=== PATIENT | male | born 1985 | race Caucasian/White ===

== ENCOUNTER 2017-10-03 13:59 | Emergency (ER) | payer MEDICARE, OTHER ==
[~2017-10-03] VITALS: Ht 170.2 cm; Wt 90.8 kg
[~2017-10-03 13:59] MED LIST: METH40TA9 PO; RANI150 PO
[2017-10-03 14:06] VITALS: BP 135/82; PULSE 84; RESP 16; TEMP 98.4; O2SAT 97
[2017-10-03] MEDS ORDERED: KEPP750T PO (14:24)
[2017-10-03] MEDS ORDERED: XANA1TAB2 PO (14:24)
[2017-10-03] MEDS ORDERED: CYCLOBENZAPRINE HCL 10 MG TAB PO ONE (14:45)
[2017-10-03] MEDS ORDERED: IBUPROFEN 800 MG TAB PO ONE (14:45)
--- NOTE | 2017-10-03 15:40 | PD ---
HPI Chief Complaint: Musculoskeletal Complaint Time Seen by Provider: 14:18 Travel History International Travel<30 days: No Contact w/Intl Traveler<30days: No Traveled to known affect area: No PFSH Past Medical History ADHD: No Arthritis: No Blood Disorders: No Anxiety: Yes Depression: Yes Cancer: No Cardiovascular Problems: No Chemotherapy: No Cerebrovascular Accident: No Diabetes: No Diminished Hearing: No Endocrine: No Gastrointestinal Disorders: Yes (IRRITABLE BOWEL SYNDROME) Genitourinary: No Headaches: Yes Immune Disorder: No Implanted Vascular Access Dvce: No Musculoskeletal: Yes Neurologic: Yes Psychiatric: Yes Reproductive: No Respiratory: No Migraines: No Radiation Therapy: No Seizures: Yes Thyroid Disease: No Influenza Vaccination: No Past Surgical History Abdominal Surgery: No AICD: No Arteriovenous Shunt: No Cardiac Surgery: No Ear Surgery: No Endocrine Surgery: No Eye Surgery: No Genitourinary Surgery: No Insulin Pump: No Joint Replacement: No Neurologic Surgery: No Oral Surgery: No Pacemaker: No Thoracic Surgery: No Tonsillectomy: Yes Other Surgery: Yes (bone graft from left hip) Social History Alcohol Use: No Tobacco Use: Yes (13ppd) Substance Use: Yes (DILAUDID hx) Allergies-Medications (Allergen,Severity, Reaction): Coded Allergies: etomidate (Unverified Allergy, Severe, muscle rigidity, seizures, 10/03/17) meloxicam (Unverified Allergy, Severe, HIVES, 10/03/17) *MDRO Multi-Drug Resistant Organism (Verified Allergy, Unknown, 10/03/17) MRSA Reported Meds & Prescriptions Reported Meds & Active Scripts Active Zantac 150 Mg Tab (Ranitidine HCl) 150 Mg Tab 150 Mg PO BID 28 Days Reported Xanax (Alprazolam) 1 Mg Tab 1 Mg PO Q8H PRN Keppra (Levetiracetam) 750 Mg Tab 750 Mg PO BID Methadone Hcl (Methadone HCl) 40 Mg Tab 160 Mg PO Data Data Last Documented VS Vital Signs Date Time Temp Pulse Resp B/P (MAP) Pulse Ox O2 Delivery O2 Flow Rate FiO2 10/03/17 14:06 98.4 84 16 135/82 (99) 97 Orders Orders Ibuprofen (Motrin) (10/03/17 14:45) Cyclobenzaprine (Flexeril) (10/03/17 14:45) MDM Medical Decision Making Medical Screen Exam Complete: Yes Emergency Medical Condition: Yes Differential Diagnosis Thoracic strain, thoracic muscle spasm , trapezius muscle strain/spasm, unlikely discitis, unlikely spinal epidural abscess Narrative Course 31-year-old male here with upper and mid back pain 1 week. Cannot recall specific injury. No fever or chills. No midline spine tenderness. Patient does have a remote history of IV drug abuse. He is adamant he's been clean for 6 years. My suspicion for epidural abscess is low given he has no fever and no midline spine tenderness. Normal neurologic exam. He is tender to the left thoracic musculature. He is well-appearing. He'll be treated for thoracic muscle strain. Strict return precautions were discussed if he develops fever, increasing pain, any new worsening symptoms. He verbalizes understanding and agrees to plan Diagnosis Primary Impression: Strain of muscle at thorax level Referrals: Primary Care Physician Additional Instructions: Ibuprofen and Flexeril as directed. Follow-up with her primary doctor. Return to the emergency department if he developed fever, chills, increasing pain, any new concerning symptom Scripts Cyclobenzaprine (Flexeril) 10 Mg Tab 10 MG PO TID for Muscle Spasm, #12 TAB 0 Refills Prov: Kecia Horner 10/03/17 Ibuprofen (Ibuprofen) 800 Mg Tab 800 MG PO Q6HR Y for PAIN, #40 TAB 0 Refills Prov: Kecia Horner 10/03/17 Disposition: 01 DISCHARGE HOME Condition: Stable Kecia Horner Oct 03, 2017 15:39
[2017-10-03] MEDS ORDERED: IBUP1TAB7 PO (16:20)
[2017-10-03] MEDS ORDERED: CYCL10TA PO (16:20)
== END 2017-10-03 16:35 | disposition home or self-care (01) ==
LOC: PHEFT 13:59
DX: S29.019A Strain of muscle and tendon of unspecified wall of thorax, initial encounter (principal); F41.9 Anxiety disorder, unspecified; F32.9 Major depressive disorder, single episode, unspecified; F17.210 Nicotine dependence, cigarettes, uncomplicated; Z88.8 Allergy status to other drugs, medicaments and biological substances; Z79.899 Other long term (current) drug therapy
CPT/HCPCS: 99283

== ENCOUNTER 2017-10-27 07:25 | Emergency (ER) | payer MEDICARE, OTHER ==
[~2017-10-27] VITALS: Ht 170.2 cm; Wt 94.0 kg
[2017-10-27] VITALS (8 sets, daily range): BP systolic 115–154; BP diastolic 60–86; PULSE 91–112; RESP 16–22; TEMP 99.6–101.6; O2SAT 95–97
[~2017-10-27 07:25] MED LIST changes: +CYCL10TA PO; +IBUP1TAB7 PO; +KEPP750T PO; +XANA1TAB2 PO
[2017-10-27] MEDS ORDERED: AZITHROMYCIN INJ 500 MG in SODIUM CHLOR 0.9% 250 ML INJ 250 ML IV STA (08:06)
[2017-10-27] MEDS ORDERED: SODIUM CHLOR 0.9% 1000 ML INJ 1,000 ML IV ONE ×3 (08:06)
[2017-10-27] MEDS ORDERED: cefTRIAXone INJ 2,000 MG in SODIUM CHLORIDE 0.9% INJ 100 ML IV STA (08:06)
--- NOTE | 2017-10-27 08:14 | PD ---
HPI Chief Complaint: Cold / Flu Symptoms Time Seen by Provider: 08:01 Travel History International Travel<30 days: No Contact w/Intl Traveler<30days: No Traveled to known affect area: No History of Present Illness HPI Patient is a 31-year-old male presents to emergency room with complaints of flulike symptoms. Patient reports that he has not been feeling well for the past 2 weeks, reports that he initially had more of a URI. Patient reports that for the past 2-4 days, he has been having increased fevers and chills, reports that he has been having a productive cough, reports overall decreased p.o. intake. Patient reports that he has a mild headache - "Pounding to his head", as well as body aches. Patient denies any neck pain. Patient reports that "I hurt all over." Patient reports that he did not receive the flu vaccination this year. Patient denies any sick contacts, denies any recent travels or trips. Patient is a smoker, reports that he has decreased his cigarette intake to 1 cigarette per day due to his illness. PFSH Past Medical History ADHD: No Arthritis: No Blood Disorders: No Anxiety: Yes Depression: Yes Cancer: No Cardiovascular Problems: No Chemotherapy: No Cerebrovascular Accident: No Diabetes: No Diminished Hearing: No Endocrine: No Gastrointestinal Disorders: Yes (IRRITABLE BOWEL SYNDROME) Genitourinary: No Headaches: Yes Immune Disorder: No Implanted Vascular Access Dvce: No Musculoskeletal: Yes Neurologic: Yes Psychiatric: Yes Reproductive: No Respiratory: No Migraines: No Radiation Therapy: No Seizures: Yes Thyroid Disease: No Past Surgical History Abdominal Surgery: No AICD: No Arteriovenous Shunt: No Cardiac Surgery: No Ear Surgery: No Endocrine Surgery: No Eye Surgery: No Genitourinary Surgery: No Insulin Pump: No Joint Replacement: No Neurologic Surgery: No Oral Surgery: No Pacemaker: No Thoracic Surgery: No Tonsillectomy: Yes Other Surgery: Yes (bone graft from left hip) Social History Alcohol Use: No Tobacco Use: Yes (3ppd) Substance Use: Yes (DILAUDID hx) Allergies-Medications (Allergen,Severity, Reaction): Coded Allergies: etomidate (Unverified Allergy, Severe, muscle rigidity, seizures, 10/27/17) meloxicam (Unverified Allergy, Severe, HIVES, 10/27/17) *MDRO Multi-Drug Resistant Organism (Verified Allergy, Unknown, 10/27/17) MRSA Reported Meds & Prescriptions Reported Meds & Active Scripts Active Flexeril (Cyclobenzaprine HCl) 10 Mg Tab 10 Mg PO TID Ibuprofen 800 Mg Tab 800 Mg PO Q6HR PRN Reported Keppra (Levetiracetam) 750 Mg Tab 750 Mg PO BID Xanax (Alprazolam) 2 Mg Tab 2 Mg PO BID PRN Review of Systems General / Constitutional: Positive: Fever, Chills Eyes: No: Visual changes HENT: Positive: Headaches, No: Neck Stiffness, Neck Pain Cardiovascular: No: Chest Pain or Discomfort, Palpitations, Irregular Rhythm Respiratory: Positive: Cough, No: Shortness of Breath Gastrointestinal: Positive: Nausea, Loss of Appetite, No: Vomiting, Abdominal Pain, Constipation Genitourinary: No: Dysuria Musculoskeletal: No: Pain Skin: No Rash Neurologic: Positive: Weakness, Headache, No: Dizziness Psychiatric: No: Depression Endocrine: No: Polydipsia Hematologic/Lymphatic: No: Easy Bruising Physical Exam Narrative GENERAL: Moderate distress SKIN: Focused skin assessment warm. Patient is diaphoretic HEAD: Atraumatic. Normocephalic. EYES: Pupils equal and round. No scleral icterus. No injection or drainage. ENT: No nasal bleeding or discharge. Mucous membranes pink and moist. NECK: Trachea midline. No JVD. CARDIOVASCULAR: Tachycardic. No murmur appreciated. RESPIRATORY: No accessory muscle use. Clear to auscultation. Breath sounds equal bilaterally. GASTROINTESTINAL: Abdomen soft, non-tender, nondistended. Hepatic and splenic margins not palpable. MUSCULOSKELETAL: No obvious deformities. No clubbing. No cyanosis. No edema. NEUROLOGICAL: Awake and alert. No obvious cranial nerve deficits. Motor grossly within normal limits. Normal speech. PSYCHIATRIC: Appropriate mood and affect; insight and judgment normal. Data Data Last Documented VS Vital Signs Date Time Temp Pulse Resp B/P (MAP) Pulse Ox O2 Delivery O2 Flow Rate FiO2 10/27/17 12:30 96 16 116/70 (85) 97 Room Air 10/27/17 08:30 99.6 Orders Orders Sepsis Workup Initiated (10/27/17 ) Complete Blood Count With Diff (10/27/17 08:06) Comprehensive Metabolic Panel (10/27/17 08:06) Lactic Acid Sepsis Protocol (10/27/17 08:06) Magnesium (Mg) (10/27/17 08:06) Urinalysis - C+S If Indicated (10/27/17 08:06) Influenzae A/B Antigen (10/27/17 08:06) Blood Culture (10/27/17 08:06) Ecg Monitoring (10/27/17 08:06) Iv Access Insert/Monitor (10/27/17 08:06) Oximetry (10/27/17 08:06) Ceftriaxone Inj (Rocephin Inj) (10/27/17 08:06) Azithromycin Inj (Zithromax Inj) (10/27/17 08:06) Sodium Chlor 0.9% 1000 Ml Inj (Ns 1000 M (10/27/17 08:06) Sodium Chlor 0.9% 1000 Ml Inj (Ns 1000 M (10/27/17 08:06) Sodium Chlor 0.9% 1000 Ml Inj (Ns 1000 M (10/27/17 08:06) Acetaminophen (Tylenol) (10/27/17 08:15) Chest, Pa & Lat (10/27/17 08:46) Vascular Access Team Consult/P PRN (10/27/17 10:15) Vascular Poc Ultrasound (10/27/17 ) Labs Laboratory Tests Test 10/27/17 09:05 10/27/17 09:26 10/27/17 10:55 Urine Collection Type CLEAN CATCH Urine Color YELLOW Urine Turbidity SL CLOUDY Urine pH 5.5 Urine Specific Nelson GREATER/EQUAL 1.030 Urine Protein 30 mg/dL Urine Glucose (UA) NEG mg/dL Urine Ketones 15 mg/dL Urine Occult Blood NEG Urine Nitrite NEG Urine Bilirubin NEG Urine Urobilinogen 0.2 MG/DL Urine Leukocyte Esterase NEG Urine WBC 0-2 /hpf Urine Squamous Epithelial Cells 6-8 /hpf Urine Transitional Epithelial Cells 0-5 /hpf Urine Amorphous Sediment MOD Microscopic Urinalysis Comment CULT NOT INDICATED Urine Collection Time 0905 White Blood Count 12.1 TH/MM3 Red Blood Count 5.87 MIL/MM3 Hemoglobin 17.4 GM/DL Hematocrit 52.8 % Mean Corpuscular Volume 89.9 FL Mean Corpuscular Hemoglobin 29.6 PG Mean Corpuscular Hemoglobin Concent 33.0 % Red Cell Distribution Width 14.1 % Platelet Count 301 TH/MM3 Mean Platelet Volume 8.8 FL Neutrophils (%) (Auto) 77.5 % Lymphocytes (%) (Auto) 12.1 % Monocytes (%) (Auto) 8.4 % Eosinophils (%) (Auto) 0.8 % Basophils (%) (Auto) 1.2 % Neutrophils # (Auto) 9.4 TH/MM3 Lymphocytes # (Auto) 1.5 TH/MM3 Monocytes # (Auto) 1.0 TH/MM3 Eosinophils # (Auto) 0.1 TH/MM3 Basophils # (Auto) 0.1 TH/MM3 CBC Comment DIFF FINAL Differential Comment Blood Urea Nitrogen 12 MG/DL Creatinine 0.98 MG/DL Random Glucose 99 MG/DL Total Protein 7.5 GM/DL Albumin 3.3 GM/DL Calcium Level 8.6 MG/DL Magnesium Level 1.9 MG/DL Alkaline Phosphatase 116 U/L Aspartate Amino Transf (AST/SGOT) 26 U/L Alanine Aminotransferase (ALT/SGPT) 48 U/L Total Bilirubin 0.5 MG/DL Sodium Level 139 MEQ/L Potassium Level 3.7 MEQ/L Chloride Level 109 MEQ/L Carbon Dioxide Level 22.2 MEQ/L Anion Gap 8 MEQ/L Estimat Glomerular Filtration Rate 89 ML/MIN Lactic Acid Level 0.9 mmol/L MDM Medical Decision Making Medical Screen Exam Complete: Yes Emergency Medical Condition: Yes Medical Record Reviewed: Yes Interpretation(s) Vital Signs Date Time Temp Pulse Resp B/P (MAP) Pulse Ox O2 Delivery O2 Flow Rate FiO2 10/27/17 07:29 101.6 112 20 154/78 (103) 95 Differential Diagnosis Sepsis, pneumonia, influenza, electrolyte abnormality, meningitis though unlikely Narrative Course 31-year-old male presents to emergency room with complaints of 2 weeks of URI with worsening symptoms for the past 3-4 days. Patient presents the emergency room tachycardic, febrile, with symptoms of fevers and chills, diaphoresis with productive cough which has worsened over the past 3-4 days. He did not receive the influenza vaccine this year. He did take a dose of Motrin prior to coming to the emergency room with no relief of his fever. Discussed with patient need for sepsis workup given his vital signs as well as his HPI. During the course of the patients emergency department visit, the patients history, examination, and differential diagnosis were reviewed with the patient. The patient was placed on a bus driver/monitor with oximetry and frequent blood pressure monitoring. The patient had an IV access obtained and blood work sent for analysis. The patient was initially provided 30 cc/kg IV fluid bolus, IV Rocephin as well as IV azithromycin for treatment of possible pneumonia with sepsis. The patients laboratory studies were reviewed and remarkable for: CBC & BMP Diagram 10/27/17 09:26 10/27/17 10:55 Total Protein 7.5, Albumin 3.3 L, Calcium Level 8.6, Magnesium Level 1.9, Alkaline Phosphatase 116, Aspartate Amino Transf (AST/SGOT) 26, Alanine Aminotransferase (ALT/SGPT) 48, Total Bilirubin 0.5 Lactate 0.9 Vital Signs Date Time Temp Pulse Resp B/P (MAP) Pulse Ox O2 Delivery O2 Flow Rate FiO2 10/27/17 11:30 95 16 123/68 (86) 97 Room Air 10/27/17 10:31 91 18 137/71 (93) 96 Room Air 10/27/17 10:04 97 18 95 Room Air 10/27/17 09:30 92 18 130/74 (92) 96 Room Air 10/27/17 08:30 110 18 95 Room Air 10/27/17 08:30 99.6 99 18 115/78 (90) 95 Room Air 10/27/17 08:30 18 95 Room Air 10/27/17 07:29 101.6 112 20 154/78 (103) 95 Radiology studies were reviewed and remarkable for: Last Impressions Chest X-Ray 10/27/17 0846 Signed Impressions: Service Date/Time: Friday, October 27, 2017 08:49 - CONCLUSION: No acute disease. There is no evidence of pneumonia. Benny Ngo MD After IV fluids, patient reports that he is feeling much better. Patient is afebrile, no longer tachycardic. Patient does meet SIRS criteria, see description was likely from influenza and dehydration. patient reports that he is hungry and thirsty, patient was ordered a meal tray was able to tolerate this. All labs and all studies were reviewed, lactic acid was 0.9, patient was positive for influenza B. I did offer patient admission to the hospital for observation as the patient reports that he is feeling much better at this time and would like to be discharged home. Discussed with him that Tamiflu would not be offered this time as he is 4 days into his symptoms. I encouraged patient to drink plenty of fluids. Patient will follow up with his primary care doctor. Signs and symptoms of when to return to the emergency room as needed patient in detail. Patient is appreciative of care Please note that patient had a prolonged ER visit as patient has history of IV drug abuse. Multiple RNs as well as myself could not establish an IV access. IV access was established by picc team. Sepsis Criteria SIRS Criteria (2 or more): Temp > 100.9 or < 96.8, Heart rate over 90, WBC > 65325, < 4000 or > 10% bands Criteria Outcome: Meets SIRS criteria Diagnosis Primary Impression: Influenza B Patient Instructions: General Instructions Additional Instructions: Please provide patient with a copy of their lab work and studies at discharge* * Please follow up with your primary care doctor in 2-3 days Return to the ER if symptoms worsen or progress Return to the ER as needed Please follow-up with all cultures from today Please drink plenty of fluids, take Tylenol or Advil for fever Disposition: 01 DISCHARGE HOME Condition: Stable Pati Hanna DO Oct 27, 2017 08:14
[2017-10-27] MEDS ORDERED: ACETAMINOPHEN 325 MG TAB PO ONE (08:15)
[2017-10-27] MEDS ORDERED: KEPP750T PO (08:50)
[2017-10-27] MEDS ORDERED: XANA2TAB2 PO (08:50)
--- NOTE | 2017-10-27 09:08 | RADRPT ---
EXAM DATE/TIME: 10/27/2017 08:49 [facility] COMPARISON: No previous studies available for comparison. INDICATIONS : Dry cough and anterior chest pain radiating to back when coughing. MEDICAL HISTORY : Seizure. SURGICAL HISTORY : Bilateral shoulder surgery. ENCOUNTER: Initial ACUITY: 2 weeks PAIN SCORE: 6/10 LOCATION: Bilateral chest FINDINGS: PA and lateral views of the chest demonstrate the lungs to be symmetrically aerated without evidence of mass, infiltrate or effusion. The cardiomediastinal contours are unremarkable. Osseous structure s are intact. Postoperative changes are noted in both shoulders. CONCLUSION: No acute disease. There is no evidence of pneumonia. Benny Ngo MD on October 27, 2017 at 9:05 Board Certified Radiologist. This report was verified electronically.
[2017-10-27 09:29] LABS: AUTOMATED NEUTROPHIL # 9.4 TH/MM3 (1.8-7.7); BASOPHIL # 0.1 TH/MM3 (0-0.2); BASOPHIL % 1.2 % (0.0-2.0); EOSINOPHIL # 0.1 TH/MM3 (0-0.4); EOSINOPHIL % 0.8 % (0.0-4.0); HEMATOCRIT 52.8 % (39.0-51.0); HEMOGLOBIN 17.4 GM/DL (13.0-17.0); LYMPH % 12.1 % (9.0-44.0); LYMPHOCYTE # 1.5 TH/MM3 (1.0-4.8); MEAN CELL VOLUME 89.9 FL (80.0-100.0); MEAN CORPUSCULAR HEMOGLOBIN 29.6 PG (27.0-34.0); MEAN PLATELET VOLUME 8.8 FL (7.0-11.0); MONO % 8.4 % (0.0-8.0); NEUT % 77.5 % (16.0-70.0); PLATELET COUNT 301 TH/MM3 (150-450); RED BLOOD COUNT 5.87 MIL/MM3 (4.50-5.90); RED CELL DISTRIBUTION WIDTH 14.1 % (11.6-17.2); WHITE BLOOD COUNT 12.1 TH/MM3 (4.0-11.0)
[2017-10-27 09:57] LABS: BILIRUBIN, URINE NEG (NEG); BLOOD, URINE NEG (NEG); GLUCOSE,URINE NEG (NEG); KETONE, URINE 15 mg/dL (NEG); NITRITE,URINE NEG (NEG); PH, URINE 5.5 (5.0-8.5); URINE COLOR YELLOW (YELLW/STRAW); URINE LEUKOCYTE ESTERASE NEG (NEG)
[2017-10-27 10:05] LABS: AMORPHOUS SEDIMENT, URINE MOD; TRANSITIONAL EPI CELLS, URINE 0-5 /hpf; WBC, URINE 0-2 /hpf (0-5)
[2017-10-27 11:14] LABS: CHLORIDE 109 MEQ/L (98-107); SODIUM (NA) 139 MEQ/L (136-145)
[2017-10-27 11:17] LABS: CALCIUM 8.6 MG/DL (8.5-10.1)
[2017-10-27 11:18] LABS: ALBUMIN 3.3 GM/DL (3.4-5.0); BICARBONATE 22.2 MEQ/L (21.0-32.0); BLOOD UREA NITROGEN 12 MG/DL (7-18); GLUCOSE,RANDOM 99 MG/DL (74-106); MAGNESIUM 1.9 MG/DL (1.5-2.5)
[2017-10-27 11:21] LABS: ALT (GPT) 48 U/L (12-78); AST (GOT) 26 U/L (15-37); CREATININE 0.98 MG/DL (0.60-1.30); GLOMERULAR FILTRATION RATE 89 ML/MIN (>89)
[2017-10-27 11:22] LABS: TOTAL BILIRUBIN ADULT 0.5 MG/DL (0.2-1.0); TOTAL PROTEIN 7.5 GM/DL (6.4-8.2)
[2017-10-27 11:24] LABS: ALKALINE PHOSPHATASE 116 U/L (45-117)
== END 2017-10-27 15:54 | disposition home or self-care (01) ==
LOC: PHED 07:25
DX: J10.1 Influenza due to other identified influenza virus with other respiratory manifestations (principal); R00.0 Tachycardia, unspecified; R11.0 Nausea; R53.1 Weakness; F41.9 Anxiety disorder, unspecified; R56.9 Unspecified convulsions; F17.210 Nicotine dependence, cigarettes, uncomplicated; Z79.899 Other long term (current) drug therapy; Z87.19 Personal history of other diseases of the digestive system
CPT/HCPCS: 71046; 80053; 81001; 83605; 83735; 85025; 87040; 87804; 96361; 96365; 96366; 96367; 99284; J0456; J0696; J7030; J7050

== ENCOUNTER 2018-06-12 17:08 | Observation (INO) ==
[2018-06-12] MEDS ORDERED: Sod Chloride 0.9% Inj 1,000 ML IV.CONT SCH (17:30)
[2018-06-12] MEDS ORDERED: Diatrizoate Meglum/Diatrizoate Sod Liq 9 ML UDC PO ONE (17:30)
--- NOTE | 2018-06-12 17:40 | ED ---
HPI General Chief Complaint: Abdominal Pain Stated Complaint: vomiting/abd pian X1week Time Seen by Provider: 06/12/18 17:29 History of Present Illness HPI narrative: This is a 32-year-old male with a history of irritable bowel syndrome, seizure disorder, polysubstance abuse, who presents today with 2-day history of nausea vomiting and blood in his stool. Patient states he started expressing nausea vomiting 2 days ago. He states that also he noted bright red blood in his stool with large clots. He reports pain in his right middle abdominal area. He states he was seen here couple weeks ago for abdominal pain was told he had gall bladder disease. He does give history that he has been drinking a lot of alcohol over the last several weeks. He also reports using cocaine for last couple weeks. He denies any IV drug use now. He states he did use IV drugs however quit 5 years ago. He denies any history of peptic ulcer disease. He does report occasional pain in his epigastric area. Related Data Home Medications Medication Instructions Recorded Confirmed gabapentin 300 mg PO DAILY 05/22/18 05/22/18 levetiracetam [Keppra] 500 mg PO BID 05/22/18 06/12/18 Allergies Allergy/AdvReac Type Severity Reaction Status Date / Time etomidate Allergy Severe muscle Verified 06/12/18 17:16 rigidity, seizures meloxicam Allergy Severe HIVES Verified 06/12/18 17:16 *MDRO Multi-Drug Resistant Allergy Unknown mrsa Uncoded 06/12/18 17:16 Organism Review of Systems ROS: all other systems reviewed are negative Constitutional Denies system reviewed and no additional complaints, except as docu and Denies fever(s) Eyes Reports system reviewed and no additional complaints, except as docu ENT Reports system reviewed and no additional complaints, except as docu Cardiovascular Denies chest pain, Denies diaphoresis, Reports lightheadedness and Denies dyspnea Respiratory Reports cough (Occasional nonproductive), Denies dyspnea and Denies dyspnea on exertion Gastrointestinal Reports abdominal pain, Denies melena, Reports hematochezia, Denies coffee ground emesis, Denies diarrhea, Reports nausea and Reports vomiting Genitourinary Reports system reviewed and no additional complaints, except as docu Musculoskeletal Reports system reviewed and no additional complaints, except as docu Neurologic Reports dizziness, Denies headache(s), Denies focal weakness and Denies numbness [facility] Medical History Medical History Hx of seizure disorder (Acute) Gallstones (Acute) IBS (irritable bowel syndrome) (Acute) Restless leg syndrome (Acute) Shingles (Acute) Surgical History Surgical History Hx of shoulder surgery (Acute) Hx of tonsillectomy (Acute) Social History Social History Substance History: Active Abuse Second Hand Smoke Exposure: No Smoking Status: Current every day smoker Tobacco Type: Cigarettes How Often Do You Have a Drink Containing Alcohol: 2 to 3 times a week Recent Travel in [facility] within the Last 8 Weeks: No Recent Out of Country Travel within the Last 8 Weeks: No Exam Narrative Exam Narrative: GENERAL: Well-developed well-nourished male in no acute respiratory distress. SKIN: Focused skin assessment warm/dry. HEAD: Atraumatic. Normocephalic. EYES: No scleral icterus. No injection or drainage. No pale conjunctiva. ENT: No nasal bleeding or discharge. Mucous membranes pink and moist. NECK: Trachea midline. Supple. CARDIOVASCULAR: Regular rate and rhythm. No murmur appreciated. RESPIRATORY: No accessory muscle use. Clear to auscultation. Breath sounds equal bilaterally. GASTROINTESTINAL: Abdomen soft, nondistended. Patient has tenderness to palpation in his right periumbilical area. No rebound, mild guarding. There is also minimal tenderness in his epigastrium. No left lower quadrant tenderness or rebound. RECTAL EXAM: Patient refused rectal exam. MUSCULOSKELETAL: No obvious deformities. No clubbing. No cyanosis. No edema. NEUROLOGICAL: Awake and alert. No obvious cranial nerve deficits. Motor grossly within normal limits. Normal speech. Course Initial Documented Vital Signs Temperature 98.9 F 06/12/18 17:16 Pulse Rate 81 06/12/18 17:16 Respiratory Rate 18 06/12/18 17:16 Blood Pressure 160/99 H 06/12/18 17:16 Pulse Oximetry 96 06/12/18 17:16 Last Documented Vital Signs Temperature 98.9 F 06/12/18 17:16 Pulse Rate 81 06/12/18 17:16 Respiratory Rate 18 06/12/18 17:16 Blood Pressure 160/99 H 06/12/18 17:16 Pulse Oximetry 96 06/12/18 17:16 Medical Decision Making MDM Narrative Medical decision making narrative: 32-year-old male with history of IV drug use 5 years ago, seizure disorder, chronic alcohol abuse, polysubstance abuse, who presents today with complaints of 2-day history of nausea vomiting and bloody stool. Patient initially stated he did not have diarrhea however now he reports that he has had 2-week history of loose stools. The patient has crampy abdominal pain. He has more pain in his right periumbilical area. There is no rebound. He denies any fevers, chills. Patient was recently admitted to the hospital for gallbladder disease. The patient's blood count shows hemoconcentration of his hemoglobin and hematocrit. He is white blood cell count is normal. Patient's bilirubin and liver function tests are elevated. CAT scan is pending at this time however he does not have a surgical belly at this time. We will admit him to the hospital for IV fluids. He will be made n.p.o. He will need a GI consult. I will asked the physician replaced me at change of shift to check on the CT scan to ensure that there is not acute surgical problem at this time. The patient was able to have his father bring in his under shorts that were stained with bright red blood. He did test positive with the Hemoccult danii. Again he had refused rectal examination. Medical Screen Exam Complete: Yes Emergency Medical Condition: Yes Differential Diagnosis Differential Diagnosis: Diverticular bleed versus inflammatory bowel disease versus brisk upper GI bleed Lab Data Result diagrams: 06/12/18 18:00 06/12/18 18:00 Lab Results 06/12/18 06/12/18 06/12/18 Range/Units 18:00 18:00 18:00 CBC w Diff Auto diff final WBC 6.0 (4.0-11.0) th/mm3 RBC 6.01 H (4.50-5.90) mil/mm3 Hgb 20.0 H (13.0-17.0) gm/dL Hct 57.0 H (39.0-51.0) % MCV 94.7 (80.0-100.0) fL MCH 33.3 (27.0-34.0) pg MCHC 35.1 (32.0-36.0) % RDW 13.8 (11.6-17.2) % Plt Count 210 (150-450) th/mm3 MPV 8.6 (7.0-11.0) fL Neut % (Auto) 66.1 (16.0-70.0) % Lymph % (Auto) 22.1 (9.0-44.0) % King % (Auto) 8.2 H (0.0-8.0) % Eos % (Auto) 2.2 (0.0-4.0) % Baso % (Auto) 1.4 (0.0-2.0) % Neut # (Auto) 4.0 (1.8-7.7) th/mm3 Lymph # (Auto) 1.3 (1.0-4.8) th/mm3 King # (Auto) 0.5 (0.0-0.9) th/mm3 Eos # (Auto) 0.1 (0.0-0.4) th/mm3 Baso # (Auto) 0.1 (0.0-0.2) th/mm3 WBC Differential . Differential Comment . PT 11.3 (9.8-11.6) sec INR 1.1 Ratio APTT 30.3 (23.4-31.7) sec Sodium 141 (136-145) meq/L Potassium 3.5 (3.5-5.1) meq/L Chloride 107 (98-107) meq/L Carbon Dioxide 27.3 (21.0-32.0) meq/L Anion Gap 7 (5-15) meq/L BUN 10 (7-18) mg/dL Creatinine 1.10 (0.60-1.30) mg/dL Estimated GFR 78 L (>89) mL/min Random Glucose 122 H (74-106) mg/dL Calcium 8.5 (8.5-10.1) mg/dL Magnesium 2.1 (1.5-2.5) mg/dL Total Bilirubin 1.2 H (0.2-1.0) mg/dL AST 55 H (15-37) U/L ALT 90 H (12-78) U/L Alkaline Phosphatase 120 H (45-117) U/L Total Protein 7.7 (6.4-8.2) g/dL Albumin 3.7 (3.4-5.0) g/dL Lipase 129 (73-393) U/L Imaging Data Radiologist's impression: Abdomen X-Ray 06/12/18 17:30 CONCLUSION: No evidence of free air. Discharge Plan Physicians Team ED Provider: Jesus Alberto Arechiga Primary Care Provider: Citlali Corral Rxs /Orders / Referrals /Forms Prescriptions: No Action levetiracetam [Keppra] 500 mg Tablet 500 mg PO BID RF: 0 gabapentin 300 mg Capsule 300 mg PO DAILY RF: 0 Status ED Status: With Doctor
[2018-06-12 18:08] LABS: Baso # (Auto) 0.1 th/mm3 (0.0-0.2); Baso % (Auto) 1.4 % (0.0-2.0); Eos # (Auto) 0.1 th/mm3 (0.0-0.4); Eos % (Auto) 2.2 % (0.0-4.0); Lymph # (Auto) 1.3 th/mm3 (1.0-4.8); Lymph % (Auto) 22.1 % (9.0-44.0); Mean Corpuscular HGB Conc 35.1 % (32.0-36.0); Mean Corpuscular Hemoglobin 33.3 pg (27.0-34.0); Mean Corpuscular Volume 94.7 fL (80.0-100.0); Mean Platelet Volume 8.6 fL (7.0-11.0); Mono # (Auto) 0.5 th/mm3 (0.0-0.9); Mono % (Auto) 8.2 % (0.0-8.0); Neut % (Auto) 66.1 % (16.0-70.0); Platelet Count 210 th/mm3 (150-450); Red Blood Count 6.01 mil/mm3 (4.50-5.90); Red Cell Distribution Width 13.8 % (11.6-17.2)
[2018-06-12 18:17] LABS: Chloride 107 meq/L (98-107); Potassium 3.5 meq/L (3.5-5.1); Sodium 141 meq/L (136-145)
[2018-06-12 18:20] LABS: Calcium 8.5 mg/dL (8.5-10.1)
[2018-06-12 18:20] LABS: Bilirubin,Urine Negative (Negative); Clarity,Urine Clear (Clear); Color,Urine Yellow (Yellw/Straw); Glucose,Urine (UA) Negative (Negative); Leukocyte Esterase,Urine Negative (Negative); Nitrite,Urine Negative (Negative); PH,Urine 6.5 (5.0-8.5); Specific Gravity,Urine 1.015 (1.002-1.035)
[2018-06-12 18:21] LABS: Albumin 3.7 g/dL (3.4-5.0); Anion Gap 7 meq/L (5-15); Blood Urea Nitrogen 10 mg/dL (7-18); Carbon Dioxide 27.3 meq/L (21.0-32.0); Glucose,Random 122 mg/dL (74-106); Lipase 129 U/L (73-393); Magnesium 2.1 mg/dL (1.5-2.5)
[2018-06-12 18:22] LABS: Activated Partial Thrombo Time 30.3 sec (23.4-31.7); INR 1.1 Ratio; Prothrombin Time 11.3 sec (9.8-11.6)
[2018-06-12 18:23] LABS: Alanine Aminotransferase 90 U/L (12-78); Aspartate Aminotransferase 55 U/L (15-37)
--- NOTE | 2018-06-12 18:23 | XR ---
EXAM DATE: 06/12/2018 6:08 PM EST AGE/SEX: 32 years / Male INDICATIONS: Vomiting and blood in stool. CLINICAL DATA: This is the patient's initial encounter. Patient reports that signs and symptoms have been present for 1 week and indicates a pain score of 7/10. MEDICAL/SURGICAL HISTORY: None. None. COMPARISON: No prior exams available for comparison. FINDINGS: A single erect view of the abdomen demonstrates the lower lungs to be clear. No evidence of free intr aperitoneal gas. The visualized bowel loops are unremarkable. CONCLUSION: No evidence of free air. Electronically signed by: Yoseph Kirkland MD 06/12/2018 6:22 PM EST
[2018-06-12 18:24] LABS: Glomerular Filtration Rate 78 mL/min (>89)
[2018-06-12 18:25] LABS: Total Protein 7.7 g/dL (6.4-8.2)
[2018-06-12 18:26] LABS: Alkaline Phosphatase 120 U/L (45-117)
[2018-06-12] MEDS ORDERED: Pantoprazole Inj 40 MG Vial IV.PUSH ONE (18:47)
[2018-06-12 18:55] LABS: RBC,Urine 0-3 /hpf (0-3); Squamous Epithelial Cell,Urine 0-5 /hpf (0-5)
--- NOTE | 2018-06-12 20:03 | CT ---
EXAM DATE: 06/12/2018 7:55 PM EST AGE/SEX: 32 years / Male INDICATIONS: Nausea, vomiting and blood in stool x 2 days. Right middle abdominal pain. CLINICAL DATA: This is the patient's initial encounter. Patient reports that signs and symptoms have been present for 2 days and indicates a pain score of 5/10. MEDICAL/SURGICAL HISTORY: Seizures. Shingles. Irritable bowel syndrome. Substance abuse. No ne. ORAL CONTRAST: Prescribed oral contrast ingested. RADIATION DOSE: 17.76 CTDI (mGy) COMPARISON: [facility], CT ABDOMEN AND PELVIS W/ CONTRAST, 03/20/2018. . TECHNIQUE: Multiple contiguous axial images were obtained through the abdomen and pelvis following b olus infusion of 85 ml Omnipaque 350 (iohexol) nonionic water-soluble contrast as a single exam dos e. Prescribed oral contrast ingested. Using automated exposure control and adjustment of the mA and/ or kV according to patient size, radiation dose was kept as low as reasonably achievable to obtain op timal diagnostic quality images. DICOM format image data is available electronically for review and comparison. FINDINGS: Lower Lungs: The visualized lower lungs are clear. Liver: The liver has a homogeneous density without space-occupying lesion. There is no dilation of th e biliary tree. No calcified gallstones. Spleen: Homogeneous density. Moderate enlargement with craniocaudal dimension 15.2 cm.. Pancreas: Unremarkable without mass or calcification. Kidneys: Normal in size and shape. No evidence of mass or hydronephrosis. Adrenal Glands: Unremarkable. Aorta: The aorta and proximal iliac vessels are grossly unremarkable without aneurysmal dilation. Bowel/Mesentery: No dilated loops of small or large bowel. The appendix is identified and has a norm al appearance. Abdominal Wall: Intact. Retroperitoneum: No evidence of adenopathy in the retrocrural, para-aortic, or deep pelvic regions. Bladder: Contours are smooth. Reproductive Organs: No abnormal masses or calcifications seen. Inguinal: The inguinal region is unremarkable without evidence of adenopathy. Bony Structures: Unremarkable. CONCLUSION: 1. Splenomegaly. 2. Otherwise negative CT abdomen/pelvis Electronically signed by: Yoseph Kirkland MD 06/12/2018 8:02 PM EST
[2018-06-12] MEDS ORDERED: Bisacodyl 10 MG Supp RECTAL PRN (20:49)
[2018-06-12 23:07] LABS: Amphetamine Screen,Urine Neg (Neg); Barbiturate Screen,Urine Neg (Neg); Cannabinoid Screen,Urine Neg (Neg); Cocaine Screen,Urine Pos (Neg)
[2018-06-12 23:12] LABS: Opiate Screen,Urine Neg (Neg)
[2018-06-13] MEDS: Sod Chloride 0.9% Inj 1,000 ML IV.CONT SCH ×3 (03:23→15:19)
[2018-06-13 08:36] VITALS: RESP 18
[2018-06-13 10:05] LABS: Baso # (Auto) 0.1 th/mm3 (0.0-0.2); Eos # (Auto) 0.1 th/mm3 (0.0-0.4); Hematocrit 53.5 % (39.0-51.0); Lymph # (Auto) 1.7 th/mm3 (1.0-4.8); Lymph % (Auto) 25.2 % (9.0-44.0); Mean Corpuscular HGB Conc 35.5 % (32.0-36.0); Mean Corpuscular Hemoglobin 33.7 pg (27.0-34.0); Mean Corpuscular Volume 94.9 fL (80.0-100.0); Mean Platelet Volume 8.5 fL (7.0-11.0); Mono # (Auto) 0.5 th/mm3 (0.0-0.9); Mono % (Auto) 7.5 % (0.0-8.0); Neut # (Auto) 4.4 th/mm3 (1.8-7.7); Neut % (Auto) 64.3 % (16.0-70.0); Platelet Count 155 th/mm3 (150-450); Red Blood Count 5.64 mil/mm3 (4.50-5.90); White Blood Count 6.8 th/mm3 (4.0-11.0)
[2018-06-13 10:13] LABS: Calcium 7.8 mg/dL (8.5-10.1); Chloride 107 meq/L (98-107); Potassium 3.4 meq/L (3.5-5.1); Sodium 143 meq/L (136-145)
[2018-06-13 10:14] LABS: Anion Gap 9 meq/L (5-15); Blood Urea Nitrogen 7 mg/dL (7-18); Carbon Dioxide 27.2 meq/L (21.0-32.0); Glucose,Random 84 mg/dL (74-106); Magnesium 2.1 mg/dL (1.5-2.5)
[2018-06-13 10:17] LABS: Glomerular Filtration Rate Greater Than 89 mL/min (>89)
--- NOTE | 2018-06-13 10:40 | P.HPIM ---
History of Present Illness Primary Care Physician: Citlali Corral MD History of Present Illness: This patient is a 32-year-old male with a diagnosis of irritable syndrome, seizure disorder currently on Keppra, and polysubstance abuse. Patient was recently seen in our emergency room with complaints of abdominal pain and was found to have gallstones. His symptoms resolved and he was then discharged. He says he has been drinking alcohol lately after meeting a new girlfriend. He also admits to snorting cocaine over the past few months. He comes into the emergency department last night with complaints of abdominal pain as well as bloody stools that have been ongoing for the past few weeks. He says when he was in his teens he had a colonoscopy and endoscopy because of complaints of on and off abdominal pain however no significant findings were found. He denies any fevers or chills, no nausea or vomiting. No chest pain no shortness of breath. Past medical history irritable bowel syndrome, seizure disorder. Patient states he rarely takes his Keppra occasionally once a day. Past surgical history the patient has had multiple surgeries on both of his shoulders from trauma after having seizures. Family history patient was adopted, he does not know of any significant family medical problems. Social history patient has been smoking tobacco half pack per day for approximately 12 years, he drinks alcohol socially, recently has increased his alcohol intake to a few drinks per day. This is been ongoing for about a year. He also admits to snorting cocaine, as per the patient he has snorted cocaine approximately 10 times in his life. Review of Systems All other systems reviewed negative except as stated in HPI [facility] - History History Provided By: Patient - Medical History Medical History: Medical History (Last Updated 06/12/18 @ 17:58 by Sergio Kaur RN) Hx of seizure disorder (Acute) Gallstones IBS (irritable bowel syndrome) Restless leg syndrome Shingles - Surgical History Surgical History: Surgical History (Last Updated 06/12/18 @ 17:58 by Sergio Kaur RN) Hx of shoulder surgery (Acute) Hx of tonsillectomy - Tobacco History Second Hand Smoke Exposure: Yes Tobacco Use In Past 30 Days: Yes Smoking Status: Current every day smoker Tobacco Type: Cigarettes - Alcohol History How Often Do You Have a Drink Containing Alcohol: 2 to 3 times a week - Substance Use History Substance History: Past History - Substance Use Type Crack/Cocaine Type: Dilaudid pills Status: Sustained Remission Route Used: Inhalation Last Used: 2012 Reason for Use: Get High - Travel History Recent Travel in the [place] Within the Last 8 Weeks: No Recent Travel Out of the Country Within the Last 8 Weeks: No - Immunization History Tetanus Immunization: <5 Years Medications and Allergies Active Medications: Active Medications Al Hydroxide/Mg Hydroxide (Milk Of Magnesia Liq) 30 ml PO Q12H PRN PRN Reason: Mild Constipation Bisacodyl (Dulcolax Supp) 10 mg RECTAL DAILY PRN PRN Reason: SEVERE CONSITIPATION Gabapentin (Neurontin) 300 mg PO DAILY [facility] Sodium Chloride (Ns Inj) 1,000 mls @ 125 mls/hr IV.CONT .Q8H KALA Last Admin: 06/13/18 03:23 Dose: 125 mls/hr Lactulose (Lactulose Liq) 30 ml PO DAILY PRN PRN Reason: SEVERE CONSITIPATION Levetiracetam (Keppra) 500 mg PO BID [facility] Ondansetron HCl (Zofran Inj) 4 mg IV.PUSH Q6H PRN PRN Reason: NAUSEA OR VOMITING Sennosides (Senokot) 17.2 mg PO Q12H PRN PRN Reason: Moderate Constipation Sodium Chloride (Ns Flush) 2 ml IV.FLUSH PRN PRN PRN Reason: FLUSH AFTER USING IV ACCESS Last Admin: 06/12/18 18:59 Dose: 2 ml Allergies Allergy/AdvReac Type Severity Reaction Status Date / Time etomidate Allergy Severe muscle Verified 06/12/18 17:16 rigidity, seizures meloxicam Allergy Severe HIVES Verified 06/12/18 17:16 *MDRO Multi-Drug Resistant Allergy Unknown mrsa Uncoded 06/12/18 17:16 Organism Home Medications Medication Instructions Recorded Confirmed Type levetiracetam [Keppra] 500 mg PO BID 05/22/18 06/12/18 History Exam Vital signs: Vital Signs 06/12/18 17:16 06/12/18 18:30 06/12/18 19:24 Temperature 98.9 F Pulse Rate 81 73 69 Respiratory Rate 18 16 16 Blood Pressure 160/99 H 159/100 H 149/98 H Pulse Oximetry 96 98 97 06/12/18 21:15 06/13/18 00:00 06/13/18 08:00 Temperature 97.5 F L 97.6 F 96.1 F L Pulse Rate 68 66 78 Respiratory Rate 20 20 18 Blood Pressure 134/90 128/76 134/98 H Pulse Oximetry 97 92 L 99 Intake & Output 06/12/18 06/13/18 06/13/18 18:59 06:59 18:59 Intake Total 1000 / 1000 Balance 1000 / 1000 Weight 90.9 kg 90.4 kg Intake: IV 1000 / 1000 NS Inj 1,000 ML @ 125 mls/hr IV 1000 / 1000 .CONT .Q8H KALA Rx#:[id number] Oral 0 / 0 Other: # Voids 6 Date of Last Bowel Movement 06/12/18 # Bowel Movements 0 Weight On Admission 90.9 kg Narrative: General patient complains of on and off abdominal pain. HEENT extraocular movements are intact, clear oropharyngeal mucosa, no JVD Cardiovascular S1-S2 audible, RRR, no murmurs rubs or gallops Respiratory clear to auscultation bilaterally Abdomen soft, nontender, nondistended, normal bowel sounds, no significant abdominal pain on palpation. Extremities no edema 2+ distal pulses in bilateral upper and lower extremities Neuro cranial nerves II through XII intact Results - Labs CBC & Chem 7: 06/13/18 09:00 06/13/18 09:00 Labs: Short CBC 06/12/18 06/13/18 Range/Units 18:00 09:00 WBC 6.0 6.8 (4.0-11.0) th/mm3 Hgb 20.0 H 19.0 H (13.0-17.0) gm/dL Hct 57.0 H 53.5 H (39.0-51.0) % Plt Count 210 155 (150-450) th/mm3 BMP 06/12/18 06/13/18 18:00 09:00 Sodium 141 143 Potassium 3.5 3.4 L Chloride 107 107 Carbon Dioxide 27.3 27.2 BUN 10 7 Creatinine 1.10 Calcium 8.5 7.8 L Liver Function 06/12/18 Range/Units 18:00 Total Bilirubin 1.2 H (0.2-1.0) mg/dL AST 55 H (15-37) U/L ALT 90 H (12-78) U/L Alkaline Phosphatase 120 H (45-117) U/L Albumin 3.7 (3.4-5.0) g/dL Urine 06/12/18 Range/Units 18:15 Urine Color Yellow (Yellw/Straw) Urine Clarity Clear (Clear) Urine pH 6.5 (5.0-8.5) Ur Specific Buckner 1.015 (1.002-1.035) Urine Protein Negative (Neg-Trace) mg/dL Urine Glucose (UA) Negative (Negative) mg/dL - Imaging Impressions Abdomen X-Ray 06/12/18 17:30 CONCLUSION: No evidence of free air. Abdomen/Pelvis CT 06/12/18 17:30 CONCLUSION: 1. Splenomegaly. 2. Otherwise negative CT abdomen/pelvis Caprini VTE Risk Assessment Caprini VTE Risk Assessment: No/Low Risk (score <= 1) Caprini Risk Assessment Model: Point Value = 1 Point Value = 2 Point Value = 3 Point Value = 5 Age 41-60 Minor surgery BMI > 25 kg/m2 Swollen legs Varicose veins or History of unexplained or recurrent spontaneous Oral contraceptives or hormone replacement Sepsis (< 1 month) Serious lung disease, including pneumonia (< 1 month) Abnormal pulmonary function Acute myocardial infarction Congestive heart failure (< 1 month) History of inflammatory bowel disease Medical patient at bed rest Age 61-74 Arthroscopic surgery Major open surgery (> 45 min) Laparoscopic surgery (> 45 min) Malignancy Confined to bed (> 72 hours) Immobilizing plaster cast Central venous access Age >= 75 History of VTE Family history of VTE Factor V Leiden Prothrombin [id number] Lupus anticoagulant Anticardiolipin antibodies Elevated serum homocysteine Heparin-induced thrombocytopenia Other congenital or acquired thrombophilia Stroke (< 1 month) Elective arthroplasty Hip, pelvis, or leg fracture Acute spinal cord injury (< 1 month) Prophylaxis Regimen: Total Risk Factor Score Risk Level Prophylaxis Regimen 0-1 Low Early ambulation 2 Moderate Order ONE of the following: *Sequential Compression Device (SCD) *Heparin 5000 units SQ BID 3-4 Higher Order ONE of the following medications: *Heparin 5000 units SQ TID *Enoxaparin/Lovenox 40 mg SQ daily (WT < 150 kg, CrCl > 30 mL/min) *Enoxaparin/Lovenox 30 mg SQ daily (WT < 150 kg, CrCl > 10-29 mL/min) *Enoxaparin/Lovenox 30 mg SQ BID (WT < 150 kg, CrCl > 30 mL/min) AND/OR *Sequential Compression Device (SCD) 5 or more Highest Order ONE of the following medications: *Heparin 5000 units SQ TID (Preferred with Epidurals) *Enoxaparin/Lovenox 40 mg SQ daily (WT < 150 kg, CrCl > 30 mL/min) *Enoxaparin/Lovenox 30 mg SQ daily (WT < 150 kg, CrCl > 10-29 mL/min) *Enoxaparin/Lovenox 30 mg SQ BID (WT < 150 kg, CrCl > 30 mL/min) AND *Sequential Compression Device (SCD) Assessment and Plan - Plan This patient is a 32-year-old male with a diagnosis of irritable syndrome, seizure disorder currently on Keppra, and polysubstance abuse. Patient was recently seen in our emergency room with complaints of abdominal pain and was found to have gallstones. His symptoms resolved and he was then discharged. He says he has been drinking alcohol lately after meeting a new girlfriend. He also admits to snorting cocaine over the past few months. He comes into the emergency department last night with complaints of abdominal pain as well as bloody stools that have been ongoing for the past few weeks. He says when he was in his teens he had a colonoscopy and endoscopy because of complaints of on and off abdominal pain however no significant findings were found. He denies any fevers or chills, no nausea or vomiting. 1. Abdominal pain with concern for ulcerative colitis 2. Gallstones Patient presents with the symptoms mentioned above. He says he has been having bloody stools over the past few weeks. Hemoglobin is high. ESR and CRP ordered and are currently pending. Panca, Asca will be ordered. GI consulted to evaluate the patient for possible colonoscopy Patient is currently NPO. Continue IVF. No fevers, no chills. Blood pressure stable. Abd imaging shows gallstones, LFTs elevated. Will follow up with GI for their recs. Will continue pain medications as needed. 3. Polysubstance abuse Patient was advised to quit smoking, quit drinking, and stop snorting cocaine. No pharmacotherapy for DVT prophylaxis as pt may undergo a procedure today. Patient is ambulatory. H&P: Quality - VTE Deep Vein Thrombosis/Pulmonary Embolism Present on Admission: No
[2018-06-13] MEDS ORDERED: levETIRAcetam 500 MG Tablet PO SCH (11:00)
[2018-06-13 11:16] VITALS: TEMP 96.3; O2SAT 97
[2018-06-13 15:45] VITALS: BP 127/78; PULSE 62
[2018-06-13] MEDS ORDERED: Gabapentin 300 MG Capsule PO SCH (21:00)
== END 2018-06-13 16:09 | disposition left against medical advice (07) ==
LOC: PHED 17:08 → INTOOBSV 18:53 → PHEDA 18:53 → PH3 20:53
PROVIDERS: ADMIT Hospitalist; ATTEND Hospitalist
DX: F17.210 Nicotine dependence, cigarettes, uncomplicated; K92.1 Melena; G25.81 Restless legs syndrome; R16.1 Splenomegaly, not elsewhere classified; F14.90 Cocaine use, unspecified, uncomplicated; K58.9 Irritable bowel syndrome, unspecified; K80.20 Calculus of gallbladder without cholecystitis without obstruction; R10.13 Epigastric pain; G40.909 Epilepsy, unspecified, not intractable, without status epilepticus